=== PATIENT | male | born 1945 | race Caucasian/White ===

== ENCOUNTER → 2018-08-28 03:39 | Emergency (ER) | payer MEDICARE, MEDICAID ==
[~2018-08-28 03:39] MED LIST: LORazepam INJ* 2 MG/ML 1 ML VIAL IV PUSH ONE; NS 0.9% 1000 ML* 1,000 ML IV ONE; Valproic Acid CAP(*) 250 MG PO ONE; cefTRIAXone(*) 1 GM in NS 0.9% 50 ML* 50 ML IVPB ONE
--- NOTE | 2018-08-28 03:57 | ED ---
Neurological HPI - HPI Summary HPI Summary: Pt is a 73 y/o M presenting to the ED brought in by EMS for seizure activity. LEVEL 5 CAVEAT: History and physical limited due to pt only responding y/n to simple questions c/w PMHx. Staff reported possible 9 minute long seizure with no history. EMS reports that the pt was somewhat postictal upon arrival. Pt has a hx of abnormal EEG findings and abnormal MRI in August of 2017, with possibility of small glioma. The pt is not on any anti-epileptic medications. - History of Current Complaint Chief Complaint: EDSeizure Stated Complaint: SEIZURES Time Seen by Provider: 08/28/18 03:41 Hx Obtained From: Patient, EMS Hx From Patient Unobtainable Due To: Altered Mental Status - PMHx Onset/Duration: Sudden Onset, Started hours ago, Resolved Timing: Intermittent Episodes Lasting: - 5-9 min Onset Severity: Mild Current Severity: None Seizure Severity: Moderate Number of Seizures: 1 Neurological Deficit Location: Generalized Pain Intensity: 0 Pain Scale Used: 0-10 Numeric Character: Unable To Describe - Allergy/Home Medications Allergies/Adverse Reactions: Allergies Allergy/AdvReac Type Severity Reaction Status Date / Time No Known Allergies Allergy Verified 05/05/18 15:07 Home Medications: Home Medications Calcipotriene/Betamethasone [Enstilar 0.005%-0.064% Foam] 0.005 % TOPICAL DAILY 08/28/18 [History Confirmed 08/28/18] Calcium Polycarbophil [Fiber-Lax] 1 tab PO DAILY 08/28/18 [History Confirmed ] PMH/Surg Hx/FS Hx/Imm Hx Previously Healthy: No Endocrine/Hematology History: Reports: Hx Diabetes Denies: Hx Thyroid Disease Cardiovascular History: Reports: Hx Hypercholesterolemia, Hx Hypertension Denies: Hx Pacemaker/ICD Respiratory History: Denies: Hx Asthma, Hx Chronic Obstructive Pulmonary Disease (COPD) GI History: Reports: Hx Gastroesophageal Reflux Disease Denies: Hx Ulcer History: Denies: Hx Renal Disease Sensory History: Denies: Hx Hearing Aid Psychiatric History: Reports: Hx Depression, Hx Panic Disorder - Surgical History Surgery Procedure, Year, and Place: quadruple by-pass surgery 2008. TURP- prostate Infectious Disease History: No Infectious Disease History: Denies: Hx Hepatitis, Hx Human Immunodeficiency Virus (HIV), Traveled Outside the [place] in Last 30 Days - Family History Known Family History: Positive: Unknown - pt is unable to give history - Social History Lives: Assisted Living Alcohol Use: None Substance Use Type: Reports: None Smoking Status (MU): Never Smoked Tobacco Review of Systems Negative: Fever Negative: Abdominal Pain All Other Systems Reviewed And Are Negative: No Physical Exam - Summary Physical Exam Summary: Appearance: Well appearing, no pain distress. Skin: warm, dry, reflects adequate perfusion Head/face: normal Eyes: EOMI, CEE ENT: mucous membranes moist Neck: supple, non-tender Respiratory: CTA, breath sounds present Cardiovascular: RRR, pulses symmetrical Abdomen: non-tender, soft Bowel Sounds: present Musculoskeletal: normal, strength/ROM intact Neuro: normal, sensory motor intact, alert, responds to simple commands, responds to simple questions, no neurological deficit. GCS: 14 Triage Information Reviewed: Yes Vital Signs On Initial Exam: Initial Vitals Temp Pulse Resp BP Pulse Ox 98.1 F 71 15 166/84 94 08/28/18 03:40 08/28/18 03:40 08/28/18 03:40 08/28/18 03:40 08/28/18 03:40 Vital Signs Reviewed: Yes Completion Of Physical Exam Limited Due To: Level 5 Diagnostics - Vital Signs Vital Signs Temp Pulse Resp BP Pulse Ox 08/28/18 03:40 98.1 F 71 15 166/84 94 - Laboratory Result Diagrams: 08/28/18 04:14 08/28/18 04:14 Lab Statement: Any lab studies that have been ordered have been reviewed, and results considered in the medical decision making process. - CT Brain CT CT Interpretation Completed By: Radiologist Summary of CT Findings: No acute intracranial abnormality. ED physician has reviewed this report. Re-Evaluation - Re-Evaluation 1 Re-Evaluation Time: 05:00 Change: Improved Comment: Pt is stable and will be sent back to [facility] with instructions to follow up with Dr. Bhatt of neurology in the morning. Course/Dx - Course Course Of Treatment: Nurse's notes reviewed. The patient was unable to contribute much to history. Generalized seizure at the care center for those with intellectual disability. Patient does have a history of abnormal EEG following partial seizure like activity in the past. 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 here is negative. He has returned to baseline mental status by time of arrival. Sugar is normal. The patient receives straight catheterization for neurogenic bladder twice daily in the facility and has frequent urinary tract infections. He does have UTI evident today. He was given IV Rocephin and fluids. I small dose of Ativan was also given. I discussed the case with Dr. Clarke from neurology who suggest 250 mg of Depakote orally and then given 3 times daily until he can follow-up with his outpatient neurologist Dr. Bhatt. This is explained to the staff attending the patient and he was discharged back to the facility in good condition. - Differential Dx Differential Diagnoses Neuro: Positive: Other - Generalized seizure, epilepsy, hypoglycemia, medication reaction, infectious etiology such as pneumonia, UTI or sepsis - Diagnoses Provider Diagnoses: UTI (urinary tract infection), Generalized seizure Discharge - Sign-Out/Discharge Documenting (check all that apply): Patient Departure - Discharge Plan Condition: Improved Disposition: [facility] Prescriptions: Cephalexin CAP* [Keflex CAP*] 500 mg PO TID #15 cap Valproic Acid (As Sodium Salt) [Valproic Acid] 250 mg PO TID #450 ml Patient Education Materials: Urinary Tract Infection in Men (ED), Generalized Tonic Clonic Seizures (ED) Referrals: Asif Bhatt MD [Medical Doctor] - Lazaro Khalil MD [Primary Care Provider] - Additional Instructions: Return to the [facility]. Call today to schedule prompt follow-up with Dr. Usman Bhatt. Return with fever, repetitive seizure, lethargy, worse, new symptoms or other concerns. - Billing Disposition and Condition Condition: IMPROVED Disposition: [facility] - Attestation Statements Document Initiated by Yolie: Yes Documenting Scribe: Vanessa Cornejo Provider For Whom Ousmane is Documenting (Include Credential): Harvinder John MD. Scribe Attestation: I, Vanessa Cornejo, scribed for Harvinder John MD. on 08/28/18 at 0522. Scribe Documentation Reviewed: Yes Provider Attestation: The documentation as recorded by the scribe, Vanessa Cornejo accurately reflects the service I personally performed and the decisions made by me, Harvinder John MD. Status of Scribe Document: Viewed
[2018-08-28 04:21] LABS: ABS Basophils 0 10^3/ul (0-0.2); ABS Eosinophils 0.1 10^3/ul (0-0.6); ABS Lymphocytes 1.1 10^3/ul (1.0-4.8); ABS Monocytes 0.4 10^3/ul (0-0.8); ABS Neutrophils 4.7 10^3/ul (1.5-7.7); ABS Nucleated RBC 0 10^3/ul; Eosinophil % 1.4 %; Hematocrit 42 % (42-52); Hemoglobin 13.9 g/dl (14.0-18.0); Lymphocyte % 17.3 %; Mean Corpuscular HGB Conc 33 g/dl (31-36); Mean Corpuscular Hemoglobin 28 pg (27-31); Mean Corpuscular Volume 85 fL (80-94); Mean Platelet Volume 6.2 fL (7.4-10.4); Nucleated Red Blood Cells % 0.1; Platelet Count 176 10^3/ul (150-450); Red Cell Distribution Width 14 % (10.5-15); White Blood Count 6.3 10^3/ul (3.5-10.8)
[2018-08-28 04:23] LABS: Urine Appearance Cloudy; Urine Bacteria 2+ (Absent); Urine Bilirubin Negative (Negative); Urine Blood Negative (Negative); Urine Color Yellow; Urine Glucose Negative (Negative); Urine Ketones Negative (Negative); Urine Nitrite Positive (Negative); Urine Protein Negative (Negative); Urine Red Blood Cell Trace(0-2/hpf) (Absent); Urine Specific Gravity 1.008 (1.010-1.030); Urine Urobilinogen Negative (Negative); Urine White Blood Cell 3+(>20/hpf) (Absent)
[2018-08-28 04:37] LABS: BUN/Creatinine Ratio 18.4 (8-20); Potassium 3.8 mmol/L (3.5-5.0)
[2018-08-28 04:38] LABS: Albumin 4.1 g/dL (3.2-5.2); Albumin/Globulin Ratio 1.4 (1-3); Calcium 9.3 mg/dL (8.6-10.3); EGFR African American 75.8 (>60); EGFR Non-African American 62.6 (>60); Total Bilirubin 0.3 mg/dL (0.2-1.0); Total Protein 7.1 g/dL (6.4-8.9)
[2018-08-28 05:26] VITALS: BP 136/78
--- NOTE | 2018-08-31 06:36 | PN ---
Progress Note - Progress Note Date of Service: 08/31/18 Note: Urine culture grew Escherichia coli and aerococcus urinae Patient was placed on cefazolin prior to discharge This is sensitive to both organisms No change in treatment is needed
== END ==
LOC: ED 03:39
DX: N39.0 Urinary tract infection, site not specified (principal); G40.409 Other generalized epilepsy and epileptic syndromes, not intractable, without status epilepticus; E11.9 Type 2 diabetes mellitus without complications; E78.00 Pure hypercholesterolemia, unspecified; I10 Essential (primary) hypertension; K21.9 Gastro-esophageal reflux disease without esophagitis
CPT/HCPCS: 36415; 70450; 80053; 81003; 81015; 82550; 84484; 85025; 87077; 87086; 87088; 87186; 93005; 96361; 96374; 96375; 99284; A9270-GY; J0696; J2060

== ENCOUNTER 2023-05-05 12:10 | Observation (INO) ==
[2023-05-05] MEDS ORDERED: Lactated Ringers 1000 ml BAG 1,000 ML IV ONE (12:41)
[2023-05-05 12:59] LABS: Hemoglobin 12.6 g/dL (13.2-16.3); Red Blood Count 4.43 10^6/uL (4.06-5.63); White Blood Count 10.4 10^3/uL (3.6-10.2)
[2023-05-05 13:00] LABS: ABS Eosinophils 0.1 10^3/uL (0.0-0.5); ABS Lymphocytes 1.5 10^3/uL (1.0-4.8); ABS Monocytes 0.7 10^3/uL (0.0-1.1); ABS Nucleated RBC 0.01 10^3/ul; Eosinophil % 0.9 %; Hematocrit 36.4 % (38-53); Lymphocyte % 14.8 %; Mean Corpuscular Hemoglobin 28.5 pg (27-33); Mean Corpuscular Hgb Conc 34.6 g/dL (31-36); Mean Corpuscular Volume 82.3 fL (80-97); Mean Platelet Volume 6.3 fL (7.5-11.2); Nucleated Red Blood Cells % 0.1 /100 WBC (0.0-0.4); Platelet Count 255 10^3/uL (150-450); Red Cell Distribution Width 15.6 % (12-17)
[2023-05-05 13:18] LABS: Albumin 3.7 g/dL (3.2-5.2); Calcium 9.2 mg/dL (8.6-10.3); Magnesium 1.9 mg/dL (1.9-2.7); Potassium 4.8 mmol/L (3.5-5.0); Total Bilirubin 0.4 mg/dL (0.2-1.0)
[2023-05-05 13:24] LABS: Albumin/Globulin Ratio 1.2 (1-3); Creatinine, Serum 1.11 mg/dL (0.67-1.17); Globulin 3.2 g/dL (2-4); Total Protein 6.9 g/dL (6.4-8.9); eGFR CKD-EPI 67.1 (>60)
[2023-05-05 13:34] LABS: INR 1.08 (0.83-1.13)
[2023-05-05 14:28] LABS: High Sensitivity Troponin 1 Hr 3 pg/mL (<20)
[2023-05-05] MEDS ORDERED: Al Hydrox/Mg Hydrox/Simet LIQ 30 ML UDC PO PRN (15:55)
[2023-05-05] MEDS: Enoxaparin 40 MG/0.4 ML SYR SUBCUT SCH (17:16)
[2023-05-05 20:07] LABS: Urine Appearance Cloudy; Urine Bilirubin Negative (Negative); Urine Blood Negative (Negative); Urine Color Yellow; Urine Glucose Negative (Negative); Urine Ketones Negative (Negative); Urine Nitrite Positive (Negative); Urine Protein Negative (Negative); Urine Specific Gravity 1.012 (1.002-1.030); Urine Urobilinogen Negative (Negative)
[2023-05-05 20:17] LABS: Urine Bacteria 1+ (Absent); Urine Red Blood Cell 1+(3-5/hpf) (Absent); Urine Squamous Epithelial Cell Present (Absent); Urine White Blood Cell 3+(>20/hpf) (Absent)
[2023-05-06 05:40] LABS: ABS Eosinophils 0.1 10^3/uL (0.0-0.5); ABS Lymphocytes 1.6 10^3/uL (1.0-4.8); ABS Monocytes 0.5 10^3/uL (0.0-1.1); Eosinophil % 0.8 %; Hemoglobin 12.5 g/dL (13.2-16.3); Lymphocyte % 22.5 %; Mean Corpuscular Hemoglobin 28.2 pg (27-33); Mean Corpuscular Hgb Conc 34.7 g/dL (31-36); Mean Corpuscular Volume 81.4 fL (80-97); Nucleated Red Blood Cells % 0.1 /100 WBC (0.0-0.4); Platelet Count 259 10^3/uL (150-450); Red Blood Count 4.42 10^6/uL (4.06-5.63); Red Cell Distribution Width 15.4 % (12-17); White Blood Count 7.2 10^3/uL (3.6-10.2)
[2023-05-06 05:49] LABS: Calcium 9.3 mg/dL (8.6-10.3); Magnesium 1.7 mg/dL (1.9-2.7); Potassium 4.3 mmol/L (3.5-5.0)
[2023-05-06 05:55] LABS: Creatinine, Serum 0.93 mg/dL (0.67-1.17)
[2023-05-06] MEDS ORDERED: Magnesium Sulfate 2 gm BAG 2 GM/50 ML BAG IVPB ONE (08:12)
[2023-05-06] MEDS ORDERED: cefTRIAXone 1 gm/50 mL D5W 1 GM/50 ML BAG IV SCH (09:00)
[2023-05-06 09:07] LABS: C Reactive Protein 11.82 mg/L (<8.01)
[2023-05-06] MEDS ORDERED: Dextrose 50% Syringe 50 ml 25 GM/50 ML SYRINGE IV PUSH PRN (10:33)
[2023-05-06] MEDS ORDERED: Sulfur Hexaflouride MICROSPHR 25 MG VIAL ONE (13:30)
[2023-05-06] MEDS: Enoxaparin 40 MG/0.4 ML SYR SUBCUT SCH (17:24)
[2023-05-07] MEDS ORDERED: cefTRIAXone 1 gm/50 mL D5W 1 GM/50 ML BAG IV SCH (09:00)
[2023-05-07 09:49] VITALS: BP 124/70
== END 2023-05-07 14:50 | disposition home or self-care (01) ==
LOC: EDHOLD 12:10 → ED 12:10 → SUATTDRO 15:55 → EDHOLD 05-06 07:45 → MED 05-06 19:16
PROVIDERS: ADMIT Internal Medicine; ATTEND Internal Medicine

== ENCOUNTER 2023-09-09 12:17 | Observation (INO) ==
[2023-09-09 14:20] LABS: ABS Basophils 0.1 10^3/uL (0.0-0.1); ABS Eosinophils 0.2 10^3/uL (0.0-0.5); ABS Lymphocytes 2.4 10^3/uL (1.0-4.8); ABS Monocytes 0.8 10^3/uL (0.0-1.1); ABS Neutrophils 6.3 10^3/uL (1.5-7.6); Eosinophil % 2.5 %; Hematocrit 36.1 % (38-53); Hemoglobin 12.2 g/dL (13.2-16.3); Lymphocyte % 24.2 %; Mean Corpuscular Hemoglobin 27.3 pg (27-33); Mean Corpuscular Hgb Conc 33.8 g/dL (31-36); Mean Corpuscular Volume 80.9 fL (80-97); Mean Platelet Volume 6.3 fL (7.5-11.2); Platelet Count 226 10^3/uL (150-450); Red Blood Count 4.46 10^6/uL (4.06-5.63); Red Cell Distribution Width 15.1 % (12-17); White Blood Count 9.7 10^3/uL (3.6-10.2)
[2023-09-09 14:56] LABS: INR 0.95 (0.83-1.13)
[2023-09-09 15:10] LABS: Albumin 3.6 g/dL (3.2-5.2); Albumin/Globulin Ratio 1.2 (1-3); C Reactive Protein 4.35 mg/L (<8.01); Creatinine, Serum 1.21 mg/dL (0.67-1.17); Globulin 2.9 g/dL (2-4); Potassium 4.4 mmol/L (3.5-5.0); Total Bilirubin 0.2 mg/dL (0.2-1.0); Total Protein 6.5 g/dL (6.4-8.9); eGFR CKD-EPI 60.5 (>60)
[2023-09-09 15:15] LABS: Urine Color Dark-Red
[2023-09-09 15:16] LABS: Urine Appearance Cloudy
[2023-09-09 15:31] LABS: Urine Bacteria Absent (Absent); Urine Red Blood Cell Absent (Absent); Urine White Blood Cell Absent (Absent)
[2023-09-09] MEDS: Iodixanol (CONTRAST) 320 MG/ML 100 ML SDV IV ONE (16:40)
[2023-09-09] MEDS: Piperacillin/Tazobac 3.375 BAG 3.375 GM/100 ML BAG IV ONE (18:57)
[2023-09-09] MEDS ORDERED: Nystatin TOP POWDER 15 GM BTL TOPICAL PRN (20:25)
[2023-09-09] MEDS ORDERED: Dextrose 50% Syringe 50 ml 25 GM/50 ML SYRINGE IV PUSH PRN (20:26)
[2023-09-10] MEDS: Lactated Ringers 1000 ml BAG 1,000 ML IV ONE (03:12)
[2023-09-10] MEDS: cefTRIAXone 1 gm/50 mL D5W 1 GM/50 ML BAG IV SCH ×2 (03:50→04:04)
[2023-09-10 06:35] LABS: ABS Eosinophils 0.2 10^3/uL (0.0-0.5); ABS Lymphocytes 2.2 10^3/uL (1.0-4.8); ABS Monocytes 0.9 10^3/uL (0.0-1.1); ABS Neutrophils 6.3 10^3/uL (1.5-7.6); ABS Nucleated RBC 0.02 10^3/ul; Hematocrit 34.7 % (38-53); Lymphocyte % 22.7 %; Mean Corpuscular Hemoglobin 27.8 pg (27-33); Mean Corpuscular Hgb Conc 34.5 g/dL (31-36); Mean Corpuscular Volume 80.4 fL (80-97); Mean Platelet Volume 6.4 fL (7.5-11.2); Nucleated Red Blood Cells % 0.3 %/100WBC (0.0-0.8); Platelet Count 222 10^3/uL (150-450); Red Blood Count 4.32 10^6/uL (4.06-5.63); Red Cell Distribution Width 14.8 % (12-17); White Blood Count 9.7 10^3/uL (3.6-10.2)
[2023-09-10 06:39] LABS: INR 1.05 (0.83-1.13)
[2023-09-10 06:49] LABS: Albumin 3.7 g/dL (3.2-5.2); Albumin/Globulin Ratio 1.2 (1-3); Creatinine, Serum 1.12 mg/dL (0.67-1.17); Globulin 3.1 g/dL (2-4); Magnesium 1.8 mg/dL (1.9-2.7); Potassium 4.2 mmol/L (3.5-5.0); Total Bilirubin 0.3 mg/dL (0.2-1.0); Total Protein 6.8 g/dL (6.4-8.9); eGFR CKD-EPI 66.4 (>60)
[2023-09-10] MEDS: Insulin GLARGINE 100 un/ml 10 ml VIAL SUBCUT SCH (17:33)
[2023-09-11 05:24] VITALS: BP 158/83
== END 2023-09-11 10:21 | disposition home or self-care (01) ==
LOC: ED 12:17 → EDHOLD 12:17 → SUATTDRO 19:02 → MED 20:39
PROVIDERS: ADMIT Internal Medicine; ATTEND Internal Medicine